=== PATIENT | female | born 1980 | race Caucasian/White ===

== ENCOUNTER 2018-09-18 13:25 | Emergency (ER) | payer OTHER ==
[~2018-09-18] VITALS: Ht 154.9 cm; Wt 87.0 kg
[~2018-09-18 13:25] MED LIST: AMOX500C2 PO; IBUP800T48 PO
[2018-09-18 13:45] VITALS: Ht 154.9 cm; Wt 87.0 kg
--- NOTE | 2018-09-18 15:44 | ERD ---
ER Documentation Chief Complaint Chief Complaint VB: spotting x1hr. + home test today. HPI 38-year-old female, G2, P1 at approximately 6 weeks by LMP 08/10/2018, presents to the emergency department, complaining of 1 day with mild vaginal spotting, associated with pelvic discomfort. Otherwise, the patient denies abdominal pain, fever, urinary symptoms or vaginal discharge. The patient has not established care yet. ROS All systems reviewed and are negative except as per history of present illness. Medications Home Meds Active Scripts Cephalexin* (Keflex*) 500 Mg Capsule, 500 MG PO QID for 7 Days, CAP Prov:BARTOLO MCKINNON MD 09/18/18 Amoxicillin* (Amoxicillin*) 500 Mg Cap, 500 MG PO TID for 7 Days, CAP Prov:JACQUES CISNEROS MD 05/13/15 Ibuprofen* (Motrin*) 800 Mg Tab, 800 MG PO Q6H PRN for PAIN AND OR ELEVATED TEMP, #30 TAB Prov:JACQUES CISNEROS MD 05/13/15 Allergies Allergies: Coded Allergies: No Known Allergy (Unverified , 09/18/18) PMhx/Soc Medical and Surgical Hx: pt denies Medical Hx, pt denies Surgical Hx Hx Alcohol Use: No Hx Substance Use: No Hx Tobacco Use: No FmHx Family History: No diabetes, No coronary disease Physical Exam Vitals Vital Signs Date Temp Pulse Resp B/P (MAP) Pulse Ox O2 O2 Flow FiO2 Time Delivery Rate 09/18/18 98.6 75 18 128/72 100 Room Air 17:35 (90) 09/18/18 98.6 91 18 130/72 100 13:45 (91) Physical Exam Const: No acute distress Head: Atraumatic Eyes: Normal Conjunctiva ENT: Normal External Ears, Nose and Mouth. Neck: Full range of motion. No meningismus. Resp: Clear to auscultation bilaterally Cardio: Regular rate and rhythm, no murmurs Abd: Soft, non tender, non distended. Normal bowel sounds Skin: No petechiae or rashes Back: No midline or flank tenderness Ext: No cyanosis, or edema Neur: Awake and alert Psych: Normal Mood and Affect Result Diagram: 09/18/18 1607 Results 24 hrs Laboratory Tests Test 09/18/18 16:09 White Blood Count 10.8 10^3/ul Red Blood Count 4.50 10^6/ul Hemoglobin 12.8 g/dl Hematocrit 38.2 % Mean Corpuscular Volume 84.9 fl Mean Corpuscular Hemoglobin 28.4 pg Mean Corpuscular Hemoglobin Concent 33.5 g/dl Red Cell Distribution Width 12.8 % Platelet Count 348 10^3/UL Mean Platelet Volume 8.6 fl Immature Granulocytes % 0.300 % Neutrophils % 67.7 % Lymphocytes % 23.0 % Monocytes % 6.7 % Eosinophils % 1.8 % Basophils % 0.5 % Nucleated Red Blood Cells % 0.0 /100WBC Immature Granulocytes # 0.030 10^3/ul Neutrophils # 7.3 10^3/ul Lymphocytes # 2.5 10^3/ul Monocytes # 0.7 10^3/ul Eosinophils # 0.2 10^3/ul Basophils # 0.1 10^3/ul Nucleated Red Blood Cells # 0.0 10^3/ul Urine Color YELLOW Urine Clarity SLIGHTLY CLOUDY Urine pH 5.0 Urine Specific [place] 1.016 Urine Ketones NEGATIVE mg/dL Urine Nitrite NEGATIVE mg/dL Urine Bilirubin NEGATIVE mg/dL Urine Urobilinogen NEGATIVE mg/dL Urine Leukocyte Esterase 2+ [place]/ul Urine Microscopic RBC 3 /HPF Urine Microscopic WBC 35 /HPF Urine Squamous Epithelial Cells FEW /HPF Urine Mucus FEW /HPF Urine Hemoglobin 2+ mg/dL Urine Glucose NEGATIVE mg/dL Urine Total Protein NEGATIVE mg/dl Beta HCG, Quantitative 9600.6 mIU/ml Patient: RAY PECK : 1980 Age: 38 Sex: F [id number] DOS: 09/18/18 1544 Ordering MD: BARTOLO MCKINNON MD Location: [facility] Room/Bed: PROCEDURE: US OB Limited. CLINICAL INDICATION: with pelvic pain. Vaginal bleeding. TECHNIQUE: Transabdominal and transvaginal color flow, Doppler and beckham scale ultrasound images of the pelvis were obtained. COMPARISON: No prior studies are available for comparison. FINDINGS: Intrauterine gestation: Age: 5 weeks 3 days. Mean crown-rump length: pole not visualized. Mean gestational sac diameter: 0.9 cm. Yolk sac: Visualized. Subchorionic collection: None. Uterus: Masses: None. Nabothian cysts: None. Right ovary: Size: 3.9 x 2.2 x 1.8 cm. Lesions: 1.7 cm debris filled cyst. No increased vascularity surrounding this lesion. Vascularity: Normal. Left ovary: Not well visualized. Adnexae: Masses: None. Fluid: Small amount in the cul-de-sac. IMPRESSION: Single intrauterine with an estimated gestational age of 5 weeks 3 days. Yolk sac is visualized. pole is not identified, possibly secondary to early gestational age. Close continued follow-up with repeat exam in -02 weeks to assess for normal development is recommended. 1.7 cm debris filled cyst on the right ovary. This could reflect a hemorrhagic corpus luteum or hemorrhagic cyst. A followup in 06-08 weeks to assess stability A considered. Small amount of nonspecific free fluid in the cul-de-sac. This could be physiologic. Left ovary not well visualized. If characterization of this structure is needed repeat exam is recommended. Procedures/MDM Vital signs stable, Physical exam unremarkable. Differential diagnosis include but not limited to: UTI, threatening , incomplete versus complete , ectopic , physiologic implantation bleeding, molar . Physical examination and clinical presentation most likely consistent with thr eatening and urinary tract infection. During the ED course the patient remained hemodynamically stable and asymptomatic. Results and clinical impression discussed with patient who agrees with management. The patient is stable to be treated outpatient and will be discharged home with close monitoring and follow-up in 2 days with her primary physician. Bed rest and pelvic rest recommended until further medical evaluation. The patient was instructed regarding the outcomes and the potential complications like severe bleeding and . If the patient presents severe bleeding or pain, she was instructed to return to the hospital immediately. Disclaimer: Inadvertent spelling and grammatical errors are likely due to EHR/dictation software use and do not reflect on the overall quality of patient care. Also, please note that the electronic time recorded on this note does not necessarily reflect the actual time of the patient encounter. Departure Diagnosis: Primary Impression: Vaginal bleeding in Additional Impressions: Early stage of UTI (urinary tract infection) Condition: Stable Additional Instructions: Thank you very much for allowing us to participate in your care. Your health and safety is our top priority at [facility]. The evaluation in the emergency department has been done to rule out an acute emergency. Chronic, [id number] conditions may have not been evaluated; therefore, you need to follow up with a primary care provider in the next 48h. If symptoms persist, worsen or new symptoms develop, then patient should return to the ED immediately. Call your primary care doctor TOMORROW for an appointment during the next 2-4 days and bring all the information provided. Have prescriptions filled and follow precisely the directions on the label. If the symptoms get worse and your provider is unavailable, return to the Emergency Department immediately. BARTOLO MCKINNON MD Sep 18, 2018 15:44
[2018-09-18] MEDS ORDERED: CEPH-443 PO (17:26)
[2018-09-18 17:35] VITALS: BP 128/72; PULSE 75; RESP 18
== END 2018-09-18 17:36 | disposition home or self-care (01) ==
LOC: FTE 13:25
DX: O20.9 Hemorrhage in early pregnancy, unspecified (principal); O23.41 Unspecified infection of urinary tract in pregnancy, first trimester; Z3A.01 Less than 8 weeks gestation of pregnancy
CPT/HCPCS: 36415; 76801; 76817; 81001; 84702; 85025; Z7502